=== PATIENT | female | born 1975 | race Caucasian/White ===

== ENCOUNTER 2016-06-08 17:24 | Emergency (ER) | payer BC ==
[~2016-06-08] VITALS: Ht 175.3 cm; Wt 134.4 kg
[~2016-06-08 17:24] MED LIST: ADVIN25/60 INH; ALBUAER19 INH; AZEL30SP NAE; CETI10TA10 PO; ESTR0.05 TOP; FLUT0.15 NAE; HYDR-5688 PO; MECL25TA2 PO; MONT1TAB3 PO; SALI0.6517 NAE
[2016-06-08 17:41] VITALS: TEMP 36.8; Ht 175.3 cm; Wt 134.4 kg
--- NOTE | 2016-06-08 18:09 | EMERGENCY ROOM VISIT NOTE ---
ED Visit Note First contact with patient: 17:44 CHIEF COMPLAINT: Head injury HISTORY OF PRESENT ILLNESS: This 41-year-old female patient presented to the emergency department accompanied by her after receiving a head injury approximately 3 hours ago. The patient reports that she was putting bottles of water in the refrigerator, when she stood up and hit her head off of a shelf. There was no loss of consciousness. There has been no vomiting. The patient complains of severe headache, nausea, dizziness and difficulty concentrating. The patient denies numbness, weakness, blurred vision or slurred speech. The headache has been constant and throbbing. The patient neck pain. The patient has taken no medications for the pain. The patient rates the pain as 6/10. The patient denies bowel or bladder dysfunction. The patient denies any other injuries. REVIEW OF SYSTEMS: A review of systems was performed with positives and pertinent negatives listed in the history of present illness. All other systems were reviewed and are negative. ALLERGIES: Oxycodone MEDICATIONS: See med list PMH: Asthma SOCIAL HISTORY: The patient lives locally with her family. PHYSICAL EXAM: Vital Signs: Reviewed Nurse's notes, vital signs stable. GENERAL : This is a 41-year-old female, in no acute distress, well-developed, well- nourished. NEURO: The patient is alert, oriented to person place and time, and coherent. Normal mini mental status exam. Negative Romberg and pronator drift. Cerebellar function intact. HEAD: Normocephalic. EYES: Pupils are equal round and reactive to light and accommodation. EOMs are full and optic discs and fundi are normal. There is no swelling or discoloration of the tissue surrounding the eyes. EARS: External auditory canals clear without blood. NOSE: Patent without tenderness. No septal hematoma. FACE: No facial bone tenderness. NECK: Supple. There is no cervical spine tenderness. The patient does not have tenderness with movement of the neck. ED COURSE: I examined the patient. Cabrera has symptoms consistent with a mild concussion. There were no concerning symptoms or physical exam findings to warrant a CT scan. I do not feel that CT is necessary at this time. I did discuss options of care with the patient including CT versus observation. The patient would prefer to be discharged home, but will return if she develops any new/concerning symptoms. Conservative care measures were discussed. She verbalized her understanding of my assessment and treatment plan. The patient was discharged home in good condition ambulatory. DIAGNOSIS: Head injury Problem List Medical Problems: (1) Asthma Status: Chronic (2) Hysterectomy Status: Resolved Current/Historical Medications Scheduled Cetirizine Hcl (Zyrtec), 10 MG PO QPM Estradiol (Vivelle-Dot), 1 PATCH TOP 2XWK Montelukast Sodium (Singulair), 10 MG PO QPM [Symbicort], 1 PUFF PO BID Scheduled PRN Ibuprofen (Advil), 400-600 MG PO Q6H PRN for Pain [Proair], 1 PUFF PO DAILY PRN for Shortness of Breath Allergies Coded Allergies: Oxycodone (Verified Adverse Reaction, Severe, VIOLENT VOMITING, 06/08/16) Vital Signs Date Time Temp Pulse Resp B/P Pulse Ox O2 Delivery O2 Flow Rate FiO2 06/08/16 18:24 82 15 160/97 99 06/08/16 17:41 36.8 88 18 164/101 97 Room Air Departure Information Impression Primary Impression: Closed head injury Dispostion Home / Self-Care Condition GOOD Referrals Erinn Aldana M.D. (MEDICAL) (PCP) Patient Instructions A Signature Page, ED Head Injury Closed, My [facility] Additional Instructions You have been treated in the Emergency Department for a Closed Head Injury. For pain control, you can use the following eadw-wxa-nuaphcy medicines (if >12 yo): - Regular strength (325mg/tab) Tylenol (acetaminophen) 2 tabs every 4-6 hours as needed. Do not exceed 12 tablets in a 24 hour period. Avoid taking more than 4 grams (4000 mg) of Tylenol per day. This includes any other sources of acetaminophen you may take on a regular basis. Avoid anti-inflammatories for the first 48 hours after a head injury. You should relax in a quiet, dark place for the rest of the day. Avoid any possible triggers including: cigarette smoke, caffeine, nicotine, chocolate, wine, beer, loud noises or music, or bright lights. You should schedule a follow-up appointment in 2-3 days with your Primary Care Provider if there are any persistent symptoms. Return to the Emergency Department if your current symptoms worsen despite treatment course outlined above, or if you develop any of the following symptoms : intractable pain despite aforementioned treatment course, visual disturbances , loss of vision, unilateral weakness or facial drooping, slurring of speech, loss of coordination, or loss of consciousness.
[2016-06-08] MEDS ORDERED: SYMBICORT PO (18:18)
[2016-06-08] MEDS ORDERED: IBUP-1050 PO (18:18)
[2016-06-08] MEDS ORDERED: PROAIR PO (18:18)
[2016-06-08 18:24] VITALS: BP 160/97; PULSE 82; O2SAT 99
== END 2016-06-08 18:25 | disposition home or self-care (01) ==
LOC: C.EDB 17:26 → C.EDD 18:25
DX: S09.90XA Unspecified injury of head, initial encounter (principal); W22.8XXA Striking against or struck by other objects, initial encounter; J45.909 Unspecified asthma, uncomplicated; Z90.710 Acquired absence of both cervix and uterus; Z88.5 Allergy status to narcotic agent

== ENCOUNTER → 2017-02-20 | Outpatient (CLI) | payer BC ==
[~2017-02-20] MED LIST changes: -ADVIN25/60 INH; -ALBUAER19 INH; -AZEL30SP NAE; -FLUT0.15 NAE; -HYDR-5688 PO; +IBUP-1050 PO; -MECL25TA2 PO; +PROAIR PO; -SALI0.6517 NAE; +SYMBICORT PO
--- NOTE | 2017-02-20 17:41 | DIAGNOSTIC IMAGING REPORT ---
LEFT LOWER EXT JOINT WITHOUT CLINICAL HISTORY: KNEE pain TECHNIQUE: Multiaxial MRI acquisition COMPARISON STUDY: None FINDINGS: Signal characteristics the osseous structures are unremarkable. Minimal subchondral edema inferior patellar articulating surface. Anterior and posterior cruciate ligaments are intact. Medial and lateral collateral ligaments are unremarkable. Moderate chondromalacia patella. Medial and lateral menisci are unremarkable in overall configuration and signal character. Medial and lateral collateral ligaments are unremarkable. IMPRESSION: 1. 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 2. Stable knee is otherwise negative. 3. Septated popliteal cyst posterior to the medial joint compartment measuring 4 x 2 cm. The above report was generated using voice recognition software. It may contain grammatical, syntax or spelling errors. Electronically signed by: Faizan Rea M.D. 02/20/2017 5:40 PM Dictated Date/Time: 02/20/2017 5:37 PM
== END | disposition home or self-care (01) ==
LOC: C.MRIBC 16:25
PROVIDERS: ATTEND Orthopaedic Surgery
DX: M22.42 Chondromalacia patellae, left knee (principal); M71.22 Synovial cyst of popliteal space [Baker], left knee

== ENCOUNTER 2017-03-27 19:18 | Emergency (ER) | payer BC, OTHER ==
[~2017-03-27] VITALS: Ht 175.3 cm; Wt 138.1 kg
[2017-03-27] MEDS ORDERED: LORAZEPAM 1 MG TAB SL STA (19:22)
[2017-03-27 19:31] VITALS: TEMP 36.7; Ht 175.3 cm; Wt 138.1 kg
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
[2017-03-27] MEDS ORDERED: MBC75 PO (20:03)
[2017-03-27] MEDS ORDERED: ALBU18002 INH (20:03)
[2017-03-27] MEDS ORDERED: SYMIN/8045 INH (20:03)
[2017-03-27] MEDS ORDERED: ATIVAN 1MG HOMEPACK PO ONE (20:15)
[2017-03-27 20:24] VITALS: BP 141/96; PULSE 92; O2SAT 99
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
== END 2017-03-27 20:25 | disposition home or self-care (01) ==
LOC: EDBD 19:18 → C.EDC 19:19
DX: S19.9XXA Unspecified injury of neck, initial encounter (principal); M54.2 Cervicalgia; V43.52XA Car driver injured in collision with other type car in traffic accident, initial encounter; Y92.410 Unspecified street and highway as the place of occurrence of the external cause

== ENCOUNTER 2017-03-29 16:44 | Emergency (ER) | payer BC, OTHER ==
[~2017-03-29] VITALS: Ht 175.3 cm; Wt 134.4 kg
[~2017-03-29 16:44] MED LIST changes: +ALBU18002 INH; -IBUP-1050 PO; +MBC75 PO; -PROAIR PO; -SYMBICORT PO; +SYMIN/8045 INH
[2017-03-29 16:59] VITALS: TEMP 36.9; Ht 175.3 cm; Wt 134.4 kg
[2017-03-29] MEDS ORDERED: LORAZEPAM 2 MG/ML 1 ML VIAL IV STA (17:29)
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
[2017-03-29 18:02] LABS: BASO % 0.2 %; BASO ABS # 0.03 K/uL (0-0.2); COMPLETE YES; EOS % 1.8 %; HEMATOCRIT 42.2 % (37-47); IG% 0.3 %; LYMPH % 22.7 %; LYMPH ABS # 3.35 K/uL (1.2-3.4); MEAN CELL VOLUME 78.4 fL (80-100); MEAN CORPUSCULAR HEMOGLOBIN 24.9 pg (25-34); MEAN CORPUSCULAR HGB CONC 31.8 g/dl (32-36); MEAN PLATELET VOLUME 9.8 fL (7.4-10.4); MONO % 6.2 %; NEUT % 68.8 %; PLATELET COUNT 384 K/uL (130-400); RED BLOOD COUNT 5.38 M/uL (4.2-5.4); WHITE BLOOD COUNT 14.78 K/uL (4.8-10.8)
[2017-03-29 18:21] LABS: PREG INTERNAL NEGATIVE QC NEG CLEAR BACKGROUND; PREG INTERNAL POSITIVE QC POS CONTROL LINE
[2017-03-29 18:22] LABS: BUN/CREATININE RATIO 12.3 (10-20); CALCIUM 8.8 mg/dl (8.5-10.1); CREATININE 0.56 mg/dl (0.60-1.20); POTASSIUM 3.5 mmol/L (3.5-5.1)
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
[2017-03-29] MEDS ORDERED: GADAVIST IV PRN (20:15)
[2017-03-29] MEDS ORDERED: METH4PAK PO (20:30)
[2017-03-29 21:00] VITALS: BP 133/79; PULSE 85; O2SAT 96
== END 2017-03-29 21:01 | disposition home or self-care (01) ==
LOC: C.EDB 16:46 → C.EDA 21:01
DX: M50.90 Cervical disc disorder, unspecified, unspecified cervical region (principal); R20.0 Anesthesia of skin; J45.909 Unspecified asthma, uncomplicated; Z80.9 Family history of malignant neoplasm, unspecified; Z83.79 Family history of other diseases of the digestive system; Z82.49 Family history of ischemic heart disease and other diseases of the circulatory system; Z79.899 Other long term (current) drug therapy

== ENCOUNTER 2017-07-25 12:01 | Observation (INO) | payer OTHER ==
[~2017-07-25] VITALS: Ht 175.3 cm; Wt 131.8 kg
[2017-07-25] MEDS ORDERED: KETOROLAC TROMETHAMINE 30 MG/ML VIAL IV STA (12:27)
[2017-07-25] MEDS ORDERED: ACETAMINOPHEN 500 MG TAB PO STA (12:27)
[2017-07-25] MEDS ORDERED: ONDANSETRON INJ 2 MG/ML 2 ML VIAL IV PRN ×2 (12:30→20:00)
[2017-07-25] MEDS ORDERED: SODIUM CHLORIDE 0.9% 1000ML 1,000 ML IV ONE ×4 (12:30→16:00)
--- NOTE | 2017-07-25 12:33 | EMERGENCY ROOM VISIT NOTE ---
History First contact with patient: 12:12 Chief Complaint: VOMITING Stated Complaint: LIGHTHEADED, NAUSEOUS, VOMITING, DIARRHEA Nursing Triage Summary: pt reports NVD since Sun. to PCP today sent in today for hydration pt reports feeling dizzy and lightheaded since sunday pt also reports body aches all over History of Present Illness The patient is a 42 year old female who presents to the Emergency Room with complaints of nausea, vomiting and diarrhea for the last 5 days. The patient also felt like she had a fever. She did not take her temperature at home. She has tried following a bland diet with minimal relief. She reports feeling lightheaded today at work. The patient was seen first at [facility], and sent here for further evaluation. She denies any abdominal pain. No cough. No sick contacts. Review of Systems 6 system review performed and negative unless otherwise noted Past Medical/Surgical History Medical Problems: (1) Asthma (2) Dizzy spells (3) Hysterectomy (4) Intractable nausea and vomiting (5) Lightheadedness Family History Diabetes mellitus FH: cancer Gallbladder disease Hypertension Seizures Social History Smoking Status: Never Smoker Alcohol Use: occasionally Drug Use: none Marital Status: Housing Status: lives with family Occupation Status: employed Current/Historical Medications Scheduled Budesonide/Formoterol Fumarate (Symbicort 80/4.5 Inhaler), 1 PUFF INH BID Cetirizine Hcl (Zyrtec), 10 MG PO QPM Estradiol (Vivelle-Dot), 1 PATCH TOP 2XWK Montelukast Sodium (Singulair), 10 MG PO QPM Scheduled PRN Albuterol Sulfate (Proair Respiclick), 1 PUFF INH DAILY PRN for Shortness of Breath Physical Exam Vital Signs Date Time Temp Pulse Resp B/P (MAP) Pulse Ox O2 Delivery O2 Flow Rate FiO2 07/25/17 18:25 77 20 136/83 98 07/25/17 16:30 83 18 117/65 Room Air 07/25/17 16:21 77 07/25/17 15:09 86 136/84 100 Room Air 90 149/100 90 156/99 07/25/17 13:36 78 18 139/99 99 Room Air 07/25/17 12:04 37.0 104 20 162/101 99 Room Air Physical Exam VITALS: Vitals are noted on the nurse's note and reviewed by myself. Vital signs stable. GENERAL: 42-year-old female, in no acute distress, nondiaphoretic, well- developed well-nourished. SKIN: The skin was without rashes, erythema, edema, or bruising. HEAD: Normocephalic atraumatic. MOUTH: Oral mucosa dry NECK: Supple without nuchal rigidity. No lymphadenopathy. Cervical spine is nontender. No JVD. HEART: Regular rate and rhythm without murmurs gallops or rubs. LUNGS: Clear to auscultation bilaterally without wheezes, rales or rhonchi. No accessory muscle use. ABDOMEN: Positive bowel sounds x 4.Soft, nontender, without organomegaly. No guarding or rebound tenderness. MUSCULOSKELETAL: No muscle atrophy, erythema, or edema noted. Strength 5/5 throughout. NEURO: Patient was alert and oriented to person place and time. Normal sensation to touch. No focal neurological deficits. Medical Decision & Procedures ER Provider Diagnostic Interpretation: CT head w/o contrast Impression: No acute intracranial abnormality. Electronically signed by: Gus Callahan M.D. 07/25/2017 5:44 PM Dictated Date/Time: 07/25/2017 5:41 PM abd/chest xray IMPRESSION: No evidence of bowel obstruction. No evidence of free air. Electronically signed by: Joaquim Prather M.D. 07/25/2017 1:33 PM Dictated Date/Time: 07/25/2017 1:32 PM The status of this report is Signed. Laboratory Results 07/25/17 12:30 Red Blood Count 5.48, Mean Corpuscular Volume 77.7, Mean Corpuscular Hemoglobin 25.0, Mean Corpuscular Hemoglobin Concent 32.2, Mean Platelet Volume 9.6, Neutrophils (%) (Auto) 71.3, Lymphocytes (%) (Auto) 21.4, Monocytes (%) (Auto) 5.7, Eosinophils (%) (Auto) 1.1, Basophils (%) (Auto) 0.2, Neutrophils # (Auto) 8.76, Lymphocytes # (Auto) 2.63, Monocytes # (Auto) 0.70, Eosinophils # (Auto) 0.13, Basophils # (Auto) 0.02 07/25/17 12:30 Test 07/25/17 12:30 07/25/17 13:52 White Blood Count 12.28 K/uL (4.8-10.8) Red Blood Count 5.48 M/uL (4.2-5.4) Hemoglobin 13.7 g/dL (12.0-16.0) Hematocrit 42.6 % (37-47) Mean Corpuscular Volume 77.7 fL (80-100) Mean Corpuscular Hemoglobin 25.0 pg (25-34) Mean Corpuscular Hemoglobin Concent 32.2 g/dl (32-36) Platelet Count 433 K/uL (130-400) Mean Platelet Volume 9.6 fL (7.4-10.4) Neutrophils (%) (Auto) 71.3 % Lymphocytes (%) (Auto) 21.4 % Monocytes (%) (Auto) 5.7 % Eosinophils (%) (Auto) 1.1 % Basophils (%) (Auto) 0.2 % Neutrophils # (Auto) 8.76 K/uL (1.4-6.5) Lymphocytes # (Auto) 2.63 K/uL (1.2-3.4) Monocytes # (Auto) 0.70 K/uL (0.11-0.59) Eosinophils # (Auto) 0.13 K/uL (0-0.5) Basophils # (Auto) 0.02 K/uL (0-0.2) RDW Standard Deviation 42.9 fL (36.4-46.3) RDW Coefficient of Variation 15.1 % (11.5-14.5) Immature Granulocyte % (Auto) 0.3 % Immature Granulocyte # (Auto) 0.04 K/uL (0.00-0.02) Anion Gap 6.0 mmol/L (3-11) Est Creatinine Clear Calc Drug Dose 154.8 ml/min Estimated GFR () 124.7 Estimated GFR (Non- 107.6 BUN/Creatinine Ratio 9.5 (10-20) Calcium Level 9.1 mg/dl (8.5-10.1) Magnesium Level 2.3 mg/dl (1.8-2.4) Total Bilirubin 0.5 mg/dl (0.2-1) Aspartate Amino Transf (AST/SGOT) 18 U/L (15-37) Alanine Aminotransferase (ALT/SGPT) 30 U/L (12-78) Alkaline Phosphatase 125 U/L (45-117) Total Protein 8.6 gm/dl (6.4-8.2) Albumin 3.7 gm/dl (3.4-5.0) Globulin 4.9 gm/dl (2.5-4.0) Albumin/Globulin Ratio 0.7 (0.9-2) Lyme Disease IgG Antibody POS (NEG) Urine Color YELLOW Urine Appearance CLEAR (CLEAR) Urine pH 7.5 (4.5-7.5) Urine Specific [place] 1.005 (1.000-1.030) Urine Protein NEG (NEG) Urine Glucose (UA) NEG (NEG) Urine Ketones TRACE (NEG) Urine Occult Blood NEG (NEG) Urine Nitrite NEG (NEG) Urine Bilirubin NEG (NEG) Urine Urobilinogen NEG (NEG) Urine Leukocyte Esterase SMALL (NEG) Urine WBC (Auto) 1-5 /hpf (0-5) Urine RBC (Auto) 0-4 /hpf (0-4) Urine Hyaline Casts (Auto) 1-5 /lpf (0-5) Urine Epithelial Cells (Auto) >30 /lpf (0-5) Urine Bacteria (Auto) NEG (NEG) Medications Administered Medications (Trade) Dose Ordered Sig/Gui Route Start Time Stop Time Status Last Admin Dose Admin Sodium Chloride 1,000 ml @ 999 mls/hr Q1H1M ONCE IV 07/25/17 12:30 07/25/17 16:11 DC 07/25/17 12:55 999 MLS/HR Sodium Chloride 1,000 ml @ 999 mls/hr Q1H1M ONCE IV 07/25/17 12:30 07/25/17 13:30 DC 07/25/17 12:55 999 MLS/HR Ondansetron HCl (Zofran Inj) 4 mg Q2H PRN IV 07/25/17 12:30 08/24/17 12:29 07/25/17 12:53 4 MG Ketorolac Tromethamine (Toradol Inj) 30 mg NOW STAT IV 07/25/17 12:27 07/25/17 12:30 DC 07/25/17 12:53 30 MG Acetaminophen (Tylenol Tab) 1,000 mg NOW STAT PO 07/25/17 12:27 07/25/17 12:30 DC 07/25/17 12:53 1,000 MG Promethazine HCl 12.5 mg/Sodium Chloride 50.5 ml @ 204 mls/hr NOW STAT IV 07/25/17 13:57 07/25/17 14:11 DC 07/25/17 14:07 204 MLS/HR Sodium Chloride 1,000 ml @ 999 mls/hr Q1H1M ONCE IV 07/25/17 15:30 07/25/17 16:30 DC 07/25/17 15:56 999 MLS/HR Meclizine HCl (Antivert Tab) 25 mg NOW STAT PO 07/25/17 16:41 07/25/17 16:42 DC 07/25/17 16:52 25 MG ECG Per My Interpretation Indication: weakness Rate (beats per minute): 78 Rhythm: normal sinus Findings: prolonged QT ED Course Patient was seen and examined Vital signs including blood pressure were reviewed medications list was verified with patient Labs were obtained, and a saline lock was established The patient was hydrated with 2 L of normal saline. She was medicated with Tylenol, Toradol and Zofran Upon reevaluation, the patient was still complaining of nausea and dizziness. She was given 1 dose of Phenergan. She was given an additional liter of normal saline. The imaging was reviewed. The patient was reassessed and still feeling lightheaded. She had difficulty ambulating to the bathroom. An EKG was performed and reviewed. She was given 1 dose of meclizine 25 mg by mouth. The case was discussed with supervising physician who is in agreement with my plan I discussed the case with case management. I subsequently discussed the case with the case here hospitalist group, who kindly agreed to evaluate the patient for further workup and treatment Medical Decision Differential diagnosis: Viral GI illness, bacterial GI illness, SBO, influenza, choledocholithiasis, pancreatitis, colitis This patient is a 42-year-old female that presents emergency department with ongoing nausea, vomiting and diarrhea. On exam, she was dehydrated. Her workup reveals mild leukocytosis. She was not able to have a bowel movement in the emergency department. X-rays of the abdomen do not show any signs of obstruction. The patient was vigorously hydrated in the emergency department. She was also given antinausea medication. Unfortunately, I could not get the patient symptomatically feeling better. Every time she got up to ambulate, she got very lightheaded. I also ordered an EKG. There are no signs of cardiac arrhythmia. A CT of the head was performed and negative. Do not feel comfortable sending this patient home as she is having significant difficulty with ambulation. I am concerned that she may fall. The case was discussed with [facility] prescription for kindly agreed to evaluate the patient for further workup and treatment This chart was completed in part utilizing [employer] Speech Voice Recognition software. Attempts were made to minimize the grammatical errors, random word insertions, pronoun errors and incomplete sentences. Any formal questions or concerns about the content, text or information contained within the body of this dictation should be directly addressed to the provider for clarification. Medication Reconcilliation Current Medication List: was personally reviewed by me Blood Pressure Screening Patient's blood pressure: Elevated blood pressure Blood pressure disposition: Did not require urgent referral Impression Primary Impression: Nausea, vomiting, and diarrhea Additional Impression: Lightheadedness Departure Information Referrals Erinn Aldana M.D. (MEDICAL) (PCP) Patient Instructions My [facility] Problem Qualifiers
[2017-07-25 12:45] LABS: BASO % 0.2 %; BASO ABS # 0.02 K/uL (0-0.2); EOS % 1.1 %; EOS ABS # 0.13 K/uL (0-0.5); HEMATOCRIT 42.6 % (37-47); HEMOGLOBIN 13.7 g/dL (12.0-16.0); IG# 0.04 K/uL (0.00-0.02); LYMPH % 21.4 %; LYMPH ABS # 2.63 K/uL (1.2-3.4); MEAN CELL VOLUME 77.7 fL (80-100); MEAN CORPUSCULAR HGB CONC 32.2 g/dl (32-36); MEAN PLATELET VOLUME 9.6 fL (7.4-10.4); MONO % 5.7 %; NEUT % 71.3 %; NEUT ABS # 8.76 K/uL (1.4-6.5); PLATELET COUNT 433 K/uL (130-400); RED CELL DISTRIBUTION WIDTH CV 15.1 % (11.5-14.5); RED CELL DISTRIBUTION WIDTH SD 42.9 fL (36.4-46.3); WHITE BLOOD COUNT 12.28 K/uL (4.8-10.8)
[2017-07-25 13:10] LABS: ALBUMIN 3.7 gm/dl (3.4-5.0); CALCIUM 9.1 mg/dl (8.5-10.1); CREATININE 0.7 mg/dl (0.60-1.20); POTASSIUM 3.2 mmol/L (3.5-5.1)
[2017-07-25 13:13] LABS: TOTAL PROTEIN 8.6 gm/dl (6.4-8.2)
--- NOTE | 2017-07-25 13:34 | DIAGNOSTIC IMAGING REPORT ---
ABDOMEN 2VIEW W/PA CHEST RTN CLINICAL HISTORY: Nausea, vomiting, diarrhea COMPARISON STUDY: No previous studies for comparison. FINDINGS: The erect chest reveals no evidence of free air. There is no evidence of focal pulmonary consolidation.] Erect and supine views of the abdomen reveal no abnormally dilated loops of large or small bowel. There are no transition zone to indicate bowel obstruction. There are surgical clips within the right upper quadrant consistent with a prior cholecystectomy. IMPRESSION: No evidence of bowel obstruction. No evidence of free air. Electronically signed by: Joaquim Prather M.D. 07/25/2017 1:33 PM Dictated Date/Time: 07/25/2017 1:32 PM
[2017-07-25] MEDS ORDERED: PROMETHAZINE HCL INJ 12.5 MG in SODIUM CHLORIDE 0.9% 50ML 50 ML IV STA (13:57)
[2017-07-25] MEDS ORDERED: MECLIZINE HCL 25 MG TAB PO STA (16:41)
--- NOTE | 2017-07-25 17:45 | DIAGNOSTIC IMAGING REPORT ---
HEAD CT NONCONTRAST CT DOSE: 537.48 mGy.cm HISTORY: lightheaded nauseated TECHNIQUE: Multiaxial CT images of the head were performed without the use of intravenous contrast. Automated exposure control was utilized for this study. A dose lowering technique was utilized adhering to the principles of ALARA. Comparison: Head CT 10/20/2012. Findings: The paranasal sinuses and mastoid air cells are clear. The calvarium and skull base are intact. The ventricles and sulci are within normal limits. There is no mass, hematoma, midline shift, or acute infarct. Impression: No acute intracranial abnormality. Electronically signed by: Gus Callahan M.D. 07/25/2017 5:44 PM Dictated Date/Time: 07/25/2017 5:41 PM
[2017-07-25] MEDS ORDERED: POLYETHYLENE (MIRALAX) 17 GM PACK PO PRN (20:00)
[2017-07-25] MEDS ORDERED: POTASSIUM CHLORIDE 10 MEQ TABCR PO STA (20:05)
[2017-07-25] MEDS ORDERED: CALCIUM CARBONATE 500 MG CHEWABLE PO PRN (20:15)
--- NOTE | 2017-07-25 20:27 | History and Physical ---
History & Physical Date & Time of Service: Jul 25, 2017 at 20:22 Chief Complaint: Lightheaded, Nauseous, Vomiting, Diarrhea Primary Care Physician: Erinn Aldana M.D. (MEDICAL) History of Present Illness Source: patient, family, clinic records Patient is a 42 yo female who presented to the ER today for complaints of worsening lightheadedness and dizziness that became worse today. She states she had some slight lightheadedness and dizziness on Sunday which were associated with fever, chills, myalgias, and nausea. She reports on Sunday the lightheadedness was gone and only had persistent flu like symptoms. On Sunday the patient reports having nausea, vomiting, and diarrhea, as well as abdominal pain which occurred prior to having a BM or after anytime the patient took in PO. She denies melena or hematochezia. She reports decreased PO intake due to N/ V/D. She reports that today her lightheadedness and dizziness recurred and were much more severe than last Sunday. She denies any sick contacts. She also reports feeling diaphoresis and palpitations which lasted a few minutes on Sunday and have not recurred. She also reports having severe leg cramps for the last 2 nights which she has not experienced before. Denies any URI symptoms. Denies any recent medication changes. Past Medical/Surgical History Medical Problems: (1) Asthma Status: Chronic (2) Hysterectomy Status: Resolved Family History Diabetes mellitus FH: cancer Gallbladder disease Hypertension Seizures Father: melanoma, [place], DM MGM and PGM: diabetes Social History Smoking Status: Never Smoker Smokeless Tobacco Use: No Alcohol Use: occasionally Drug Use: none Marital Status: Housing status: lives with family Occupational Status: employed Immunizations History of Influenza Vaccine: Unknown History of Tetanus Vaccine?: Unknown History of Pneumococcal: Unknown History of Hepatitis B Vaccine: Unknown Multi-Drug Resistant Organisms History of MDRO: No Allergies Coded Allergies: Oxycodone (Verified Adverse Reaction, Intermediate, VIOLENT VOMITING, 07/25) Home Medications Scheduled Budesonide/Formoterol Fumarate (Symbicort 80/4.5 Inhaler), 1 PUFF INH BID Cetirizine Hcl (Zyrtec), 10 MG PO QPM Estradiol (Vivelle-Dot), 1 PATCH TOP 2XWK Montelukast Sodium (Singulair), 10 MG PO QPM Scheduled PRN Albuterol Sulfate (Proair Respiclick), 1 PUFF INH DAILY PRN for Shortness of Breath Review of Systems Constitutional: + fever, + chills, + sweats Eyes: No eye pain, No redness, No diplopia ENT: No nasal symptoms, No sore throat, No trouble swallowing Respiratory: No cough, No wheezing, No shortness of breath Cardiovascular: + palpitations, No chest pain, No edema Abdomen: + pain, + nausea, + vomiting, + diarrhea, No GI bleeding Musculoskeletal: + muscle pain Genitourinary - Female: No dysuria, No urinary frequency, No urinary urgency Neurologic: No memory loss, No weakness, No numbness/tingling, No vertigo Psychiatric: No depression symptoms, No anxiety, No substance abuse Endocrine: No fatigue, No excessive thirst, No excessive urination Hematologic / Lymphatic: No abnormal bleeding/bruising, No night sweats Integumentary: No rash, No itch, No new/changing skin lesions Physical Exam Vital Signs Date Time Temp Pulse Resp B/P (MAP) Pulse Ox O2 Delivery O2 Flow Rate FiO2 07/25/17 18:25 77 20 136/83 98 07/25/17 16:30 83 18 117/65 Room Air 07/25/17 16:21 77 07/25/17 15:09 86 136/84 100 Room Air 90 149/100 90 156/99 07/25/17 13:36 78 18 139/99 99 Room Air 07/25/17 12:04 37.0 104 20 162/101 99 Room Air General Appearance: WD/WN, no apparent distress Head: normocephalic, atraumatic Eyes: normal inspection, PERRL, EOMI, sclerae normal (conjunctivae clear) ENT: hearing grossly normal Neck: supple, no JVD, no carotid bruits, trachea midline Respiratory/Chest: chest non-tender, lungs clear, normal breath sounds, no respiratory distress, no accessory muscle use Cardiovascular: regular rate, rhythm, no edema, no gallop, no JVD, no murmur Abdomen/GI: normal bowel sounds, non tender, soft, no organomegaly Back: no CVA tenderness Extremities/Musculoskelatal: normal inspection, no calf tenderness, no pedal edema Neurologic/Psych: no motor/sensory deficits, alert, normal mood/affect, oriented x 3 Skin: normal color, warm/dry, no rash Diagnostics Laboratory Results Results Past 24 Hours Test 07/25/17 12:30 07/25/17 13:52 Range/Units White Blood Count 12.28 4.8-10.8 K/uL Red Blood Count 5.48 4.2-5.4 M/uL Hemoglobin 13.7 12.0-16.0 g/dL Hematocrit 42.6 37-47 % Mean Corpuscular Volume 77.7 80-100 fL Mean Corpuscular Hemoglobin 25.0 25-34 pg Mean Corpuscular Hemoglobin Concent 32.2 32-36 g/dl Platelet Count 433 130-400 K/uL Mean Platelet Volume 9.6 7.4-10.4 fL Neutrophils (%) (Auto) 71.3 % Lymphocytes (%) (Auto) 21.4 % Monocytes (%) (Auto) 5.7 % Eosinophils (%) (Auto) 1.1 % Basophils (%) (Auto) 0.2 % Neutrophils # (Auto) 8.76 1.4-6.5 K/uL Lymphocytes # (Auto) 2.63 1.2-3.4 K/uL Monocytes # (Auto) 0.70 0.11-0.59 K/uL Eosinophils # (Auto) 0.13 0-0.5 K/uL Basophils # (Auto) 0.02 0-0.2 K/uL RDW Standard Deviation 42.9 36.4-46.3 fL RDW Coefficient of Variation 15.1 11.5-14.5 % Immature Granulocyte % (Auto) 0.3 % Immature Granulocyte # (Auto) 0.04 0.00-0.02 K/uL Sodium Level 138 136-145 mmol/L Potassium Level 3.2 3.5-5.1 mmol/L Chloride Level 103 98-107 mmol/L Carbon Dioxide Level 29 21-32 mmol/L Anion Gap 6.0 3-11 mmol/L Blood Urea Nitrogen 7 7-18 mg/dl Creatinine 0.70 0.60-1.20 mg/dl Est Creatinine Clear Calc Drug Dose 154.8 ml/min Estimated GFR () 124.7 Estimated GFR (Non- 107.6 BUN/Creatinine Ratio 9.5 10-20 Random Glucose 95 70-99 mg/dl Calcium Level 9.1 8.5-10.1 mg/dl Magnesium Level 2.3 1.8-2.4 mg/dl Total Bilirubin 0.5 0.2-1 mg/dl Aspartate Amino Transf (AST/SGOT) 18 15-37 U/L Alanine Aminotransferase (ALT/SGPT) 30 12-78 U/L Alkaline Phosphatase 125 45-117 U/L Total Protein 8.6 6.4-8.2 gm/dl Albumin 3.7 3.4-5.0 gm/dl Globulin 4.9 2.5-4.0 gm/dl Albumin/Globulin Ratio 0.7 0.9-2 Lyme Disease IgG Antibody POS NEG Lyme Disease IgM Antibody NEG NEG Urine Color YELLOW Urine Appearance CLEAR CLEAR Urine pH 7.5 4.5-7.5 Urine Specific [place] 1.005 1.000-1.030 Urine Protein NEG NEG Urine Glucose (UA) NEG NEG Urine Ketones TRACE NEG Urine Occult Blood NEG NEG Urine Nitrite NEG NEG Urine Bilirubin NEG NEG Urine Urobilinogen NEG NEG Urine Leukocyte Esterase SMALL NEG Urine WBC (Auto) 1-5 0-5 /hpf Urine RBC (Auto) 0-4 0-4 /hpf Urine Hyaline Casts (Auto) 1-5 0-5 /lpf Urine Epithelial Cells (Auto) >30 0-5 /lpf Urine Bacteria (Auto) NEG NEG Impression Assessment and Plan LIGHTHEADEDNESS/DIZZINESS/PALPITATIONS: -will admit to obs in tele to evaluate for any arrhythmias -orthostatics daily; first set was negative -check serial CM -TTE and carotid dopplers ordered -Lyme IgG positive, awaiting confirmatory, patient denies any known rashes or tick bites but recalls her dog having tick bites -hydrate with IV fluids overnight -not likely flu given GI symptoms -CT head negative POSSIBLE LYME: not acute -awaiting confirmatory (if >5 bands positive) -start on doxycycline, switch to PO once able to tolerate PO NAUSEA/VOMITING/DIARRHEA: -x ray negative for ileus or obstruction -most likely viral however if symptoms persist would consider further imaging -check stool culture and c diff ASTHMA: -stable, not in exacerbation -continue home meds and inhalers DM TYPE II: as per outpatient records -patient is not on any meds, presumably diet controlled -will order HbA1c update Level of Care Telemetry Resuscitation Status FULL RESUSCITATION VTE Prophylaxis VTE Risk Assessment Done? Y/N: Yes Risk Level: Moderate Given or contraindicated: Enoxaparin (Lovenox)SQ
--- NOTE | 2017-07-25 21:20 | DIAGNOSTIC IMAGING REPORT ---
BILATERAL CAROTID DOPPLER STUDY HISTORY: lightheadedness/dizziness COMPARISON: None. TECHNIQUE: Real-time, grayscale, and color Doppler sonography of the carotid arteries was performed. Imaging reviewed in the transverse and longitudinal planes. All measurements were calculated based on NASCET criteria. FINDINGS: Antegrade flow is seen in the bilateral vertebral arteries. The brachial pressures were not obtained. The peak systolic velocity within the right ICA is 116 cm/s. The right systolic ratio is 1.2. The peak systolic velocity within the left ICA is 85 cm/s. The left systolic ratio is 1.0. IMPRESSION: No hemodynamically significant stenosis seen within the carotid arteries. Electronically signed by: Gus Callahan M.D. 07/25/2017 9:19 PM Dictated Date/Time: 07/25/2017 9:18 PM
[2017-07-25] MEDS ORDERED: IV FLUIDS COMPLETED PRN (21:30)
[2017-07-25] MEDS ORDERED: MECLIZINE HCL 25 MG TAB PO PRN (22:00)
[2017-07-25] MEDS ORDERED: ALBUTEROL HFA 8 GM INHALER INH PRN (22:00)
[2017-07-25] MEDS ORDERED: POTASSIUM CHLORIDE 10 MEQ TABCR ONE (22:08)
[2017-07-25 22:42] VITALS: BP 126/82; PULSE 81; TEMP 37; O2SAT 97; Ht 175.3 cm; Wt 131.8 kg
[2017-07-25] MEDS ORDERED: SODIUM CHLORIDE 0.9% 1000ML 1,000 ML IV SCH (23:00)
[2017-07-25] MEDS: DOXYCYCLINE IV 100 MG in DEXTROSE 5% 100ML 100 ML IV SCH (23:14)
[2017-07-25] MEDS: ACETAMINOPHEN 325 MG TAB PO PRN (23:24)
[2017-07-26] MEDS ORDERED: ZOLPIDEM TARTRATE 5 MG TAB PO PRN (00:45)
[2017-07-26 08:01] LABS: HEMATOCRIT 40.5 % (37-47); HEMOGLOBIN 12.6 g/dL (12.0-16.0); MEAN CELL VOLUME 79.3 fL (80-100); MEAN CORPUSCULAR HEMOGLOBIN 24.7 pg (25-34); MEAN CORPUSCULAR HGB CONC 31.1 g/dl (32-36); MEAN PLATELET VOLUME 9.7 fL (7.4-10.4); PLATELET COUNT 381 K/uL (130-400); RED CELL DISTRIBUTION WIDTH CV 15.3 % (11.5-14.5); RED CELL DISTRIBUTION WIDTH SD 44.4 fL (36.4-46.3)
[2017-07-26 08:02] VITALS: BP 125/85; PULSE 83; TEMP 36.6; O2SAT 98
[2017-07-26 08:16] LABS: HEMOGLOBIN A1C 6.4 % (4.5-5.6)
--- NOTE | 2017-07-26 08:21 | ECHOCARDIOGRAM REPORT ---
*NOTICE TO RECEIVING LIBERTARIAN AGENCY This information is strictly Confidential and protected under [place] law. [place] law prohibits you from making any further disclosure of this information unless further disclosure is expressly permitted by the written consent of the person to whom it pertains or is authorized by law. A general authorization for the release of medical or other information is not sufficient for this purpose. Hospital accepts no responsibility if the information is made available to any other person, INCLUDING THE PATIENT. Interpretation Summary * Name: KRYSTAL MOTA Study Date: 07/26/2017 06:42 AM BP: 126/82 mmHg * Patient Location: [facility]\S\N288\S\1 HR: 81 * : 1975 (M/d/yyyy) Gender: Female Height: 69 in * Age: 42 yrs Ethnicity: CA Weight: 292 lb * Ordering Physician: Padmini Prince * Referring Physician: Self, Referred * Performed By: Juan A Appiah RCS * * Reason For Study: Palpitations * BSA: 2.4 m2 * -- Conclusions -- * Normal LV chamber size and wall thickness. * Normal LV systolic function, EF 60-65%. * No segmental left ventricular wall motion abnormalities are noted. * Grade II diastolic dysfunction. * No significant valvular pathology. * Mild left atrial enlargement. Procedure Details * A complete two-dimensional transthoracic echocardiogram was performed (2D, M-mode, Doppler and color flow Doppler). Left Ventricle * The left ventricle is normal in size. * There is normal left ventricular wall thickness. * Left ventricular systolic function is normal. * No segmental left ventricular wall motion abnormalities are noted. * Ejection Fraction = 60-65%. * The left ventricular wall motion is normal. Right Ventricle * The right ventricular cavity size is normal (basal dimension <4.2 cm in right ventricular apical 4-chamber view). * The right ventricular systolic function is normal as assessed by tricuspid annular plane systolic excursion (TAPSE) (normal >1.5 cm). Atria * The left atrium is mildly dilated. * Right atrial size is normal. * No ASD detected; PFO is not assessed. Mitral Valve * The mitral valve is normal in structure and function. Tricuspid Valve * The tricuspid valve is normal in structure and function. Aortic Valve * The aortic valve is normal in structure and function. Pulmonic Valve * The pulmonary valve is not well seen, but the Doppler examination is normal without significant regurgitation or stenosis. Great Vessels * The aortic root and proximal ascending aorta are normal sized. Pericardium/Pleural * Trace anterior pericardial effusion. Left Ventricular Diastolic Function * Diastolic dysfunction, Grade II (pseudonormalization pattern). MMode 2D Measurements and Calculations IVSd 1.0 cm IVSs 1.3 cm LVIDd 5.7 cm LVIDs 3.4 cm LVPWd 1.0 cm LVPWs 1.5 cm IVS/LVPW 0.96 FS 41.2 % EDV(Teich) 161.9 ml ESV(Teich) 46.3 ml EF(Teich) 71.4 % EDV(cubed) 188.0 ml ESV(cubed) 38.2 ml EF(cubed) 79.7 % % IVS thick 26.0 % % LVPW thick 39.9 % LV mass(C)d 237.2 grams LV mass(C)dI 97.8 grams/m\S\2 LV mass(C)s 158.4 grams LV mass(C)sI 65.3 grams/m\S\2 SV(Teich) 115.6 ml SI(Teich) 47.6 ml/m\S\2 SV(cubed) 149.8 ml SI(cubed) 61.8 ml/m\S\2 Ao root diam 3.1 cm Ao root area 7.8 cm\S\2 ACS 1.7 cm LA dimension 4.8 cm asc Aorta Diam 2.8 cm LA/Ao 1.5 EDV(MOD-sp4) 109.0 ml ESV(MOD-sp4) 41.0 ml EF(MOD-sp4) 62.4 % EDV(MOD-sp2) 64.0 ml ESV(MOD-sp2) 25.0 ml EF(MOD-sp2) 60.9 % SV(MOD-sp4) 68.0 ml SI(MOD-sp4) 28.0 ml/m\S\2 SV(MOD-sp2) 39.0 ml SI(MOD-sp2) 16.1 ml/m\S\2 Doppler Measurements and Calculations MV E max tj 102.7 cm/sec MV A max tj 75.5 cm/sec MV E/A 1.4 MV P1/2t max tj 104.1 cm/sec MV P1/2t 74.4 msec MVA(P1/2t) 3.0 cm\S\2 MV dec slope 409.8 cm/sec\S\2 MV dec time 0.24 sec Ao V2 max 129.4 cm/sec Ao max PG 6.7 mmHg Ao max PG (full) -0.49 mmHg LV V1 max PG 7.2 mmHg LV V1 max 134.1 cm/sec PA V2 max 144.2 cm/sec PA max PG 8.3 mmHg
[2017-07-26 08:22] LABS: CALCIUM 8.4 mg/dl (8.5-10.1); CREATININE 0.6 mg/dl (0.60-1.20); POTASSIUM 3.5 mmol/L (3.5-5.1)
[2017-07-26] MEDS: BUDESONIDE/FORMOTEROL FUMARATE 80/4.5 60 PUFFS/INHALER INH SCH ×2 (08:43→21:01)
[2017-07-26] MEDS: PANTOprazole SOD 40 MG TAB PO SCH (08:43)
[2017-07-26] MEDS: DOXYCYCLINE IV 100 MG in DEXTROSE 5% 100ML 100 ML IV SCH ×2 (08:43→21:11)
[2017-07-26] MEDS: ENOXAPARIN 40 MG/0.4 ML SYR SC SCH (08:44)
[2017-07-26] MEDS: ASPIRIN 81 MG ECTAB PO SCH (08:44)
[2017-07-26 11:26] VITALS: BP 135/89; PULSE 83; TEMP 36.6; O2SAT 97
[2017-07-26 14:57] VITALS: BP 143/87; PULSE 87; TEMP 36.5; O2SAT 98
--- NOTE | 2017-07-26 16:08 | Progress Note ---
Internal Med Progress Note Date of Service: Jul 26, 2017. Provider Documentation: SUBJECTIVE: The patient was seen and examined A little bit better since admission Complains of dizziness and headache OBJECTIVE: Vital Signs-as noted below Exam: General-No distress at rest Eyes-normal ENT-normal Neck-supple Lungs-clear to ausucltate bilaterally Heart-Regular,no murmur appreciated Abdomen-Benign,no masses,bowel sound present Extremities-No edema Neuro-AAOx3 Lab data as noted below. ASSESSMENT & PLAN: LIGHTHEADEDNESS/DIZZINESS/PALPITATIONS: -No arrhythmia on Tele -Orthostatics daily; first set was negative -TTE::Normal LV chamber size and wall thickness. * Normal LV systolic function, EF 60-65%. * No segmental left ventricular wall motion abnormalities are noted. * Grade II diastolic dysfunction. * No significant valvular pathology. * Mild left atrial enlargement. Carotid Doppler ::No hemodynamically significant stenosis seen within the carotid arteries. -Lyme IgG positive, awaiting confirmatory, patient denies any known rashes or tick bites but recalls her dog having tick bites -Hydrate with IV fluids overnight -Likely Viral Gastroenteritis -CT head negative -Increase ambulation -Likely home tomorrow POSSIBLE LYME: not acute -awaiting confirmatory (if >5 bands positive) -start on doxycycline, switch to PO once able to tolerate PO NAUSEA/VOMITING/DIARRHEA: -x ray negative for ileus or obstruction -most likely viral however if symptoms persist would consider further imaging -check stool culture and c diff-pending ASTHMA: -stable, not in exacerbation -continue home meds and inhalers DM TYPE II: as per outpatient records -patient is not on any meds, presumably diet controlled -will order HbA1c update DVT PROPHYLAXIS Lovenox DISPOSITION Likely home tomorrow Vital Signs: Date Time Temp Pulse Resp B/P (MAP) Pulse Ox O2 Delivery O2 Flow Rate FiO2 07/26/17 14:57 36.5 87 18 143/87 (105) 98 Room Air 07/26/17 12:00 Room Air 07/26/17 11:26 36.6 83 18 135/89 (104) 97 Room Air 07/26/17 08:02 36.6 83 16 125/85 (98) 98 Room Air 07/26/17 08:00 Room Air 07/26/17 04:00 Room Air 07/26/17 00:00 Room Air 07/25/17 22:42 37.0 81 18 126/82 97 Room Air 07/25/17 22:20 80 20 138/96 98 07/25/17 21:30 78 20 118/76 98 Room Air 07/25/17 18:25 77 20 136/83 98 07/25/17 16:30 83 18 117/65 Room Air 07/25/17 16:21 77 Lab Results: Results Past 24 Hours Test 07/26/17 01:22 07/26/17 07:47 07/26/17 13:44 Range/Units Troponin I < 0.015 < 0.015 < 0.015 0-0.045 ng/ml White Blood Count 8.50 4.8-10.8 K/uL Red Blood Count 5.11 4.2-5.4 M/uL Hemoglobin 12.6 12.0-16.0 g/dL Hematocrit 40.5 37-47 % Mean Corpuscular Volume 79.3 80-100 fL Mean Corpuscular Hemoglobin 24.7 25-34 pg Mean Corpuscular Hemoglobin Concent 31.1 32-36 g/dl RDW Standard Deviation 44.4 36.4-46.3 fL RDW Coefficient of Variation 15.3 11.5-14.5 % Platelet Count 381 130-400 K/uL Mean Platelet Volume 9.7 7.4-10.4 fL Sodium Level 141 136-145 mmol/L Potassium Level 3.5 3.5-5.1 mmol/L Chloride Level 110 98-107 mmol/L Carbon Dioxide Level 27 21-32 mmol/L Anion Gap 5.0 3-11 mmol/L Blood Urea Nitrogen 4 7-18 mg/dl Creatinine 0.60 0.60-1.20 mg/dl Est Creatinine Clear Calc Drug Dose 181.5 ml/min Estimated GFR () 131.2 Estimated GFR (Non- 113.2 BUN/Creatinine Ratio 7.1 10-20 Random Glucose 101 70-99 mg/dl Estimated Average Glucose 137 mg/dl Hemoglobin A1c 6.4 4.5-5.6 % Calcium Level 8.4 8.5-10.1 mg/dl Magnesium Level 2.1 1.8-2.4 mg/dl Triglycerides Level 125 0-150 mg/dl Cholesterol Level 160 0-200 mg/dl HDL Cholesterol 30 mg/dl LDL Cholesterol, Calculated 105 mg/dl VLDL Cholesterol, Calculated 25 mg/dl Cholesterol/HDL Ratio 5.3
[2017-07-26 20:00] VITALS: O2SAT 98
[2017-07-26] MEDS: MONTELUKAST SOD 10 MG TAB PO SCH (21:01)
[2017-07-26] MEDS: CETIRIZINE HCL 10 MG TAB PO SCH (21:01)
[2017-07-26 21:04] VITALS: BP 120/86; PULSE 71; TEMP 36.8; O2SAT 96
[2017-07-26] MEDS: ACETAMINOPHEN 325 MG TAB PO PRN (21:12)
[2017-07-26] MEDS ORDERED: KETOROLAC TROMETHAMINE 30 MG/ML VIAL IV STA (22:54)
[2017-07-27] VITALS (10 sets, daily range): BP systolic 118–154; BP diastolic 78–92; PULSE 65–97; TEMP 36.3–36.9; O2SAT 92–98
[2017-07-27 07:10] LABS: HEMATOCRIT 39.7 % (37-47); HEMOGLOBIN 12.5 g/dL (12.0-16.0); MEAN CELL VOLUME 79.4 fL (80-100); MEAN CORPUSCULAR HGB CONC 31.5 g/dl (32-36); PLATELET COUNT 382 K/uL (130-400); RED CELL DISTRIBUTION WIDTH CV 15.2 % (11.5-14.5); RED CELL DISTRIBUTION WIDTH SD 44.4 fL (36.4-46.3); WHITE BLOOD COUNT 10.65 K/uL (4.8-10.8)
[2017-07-27 07:41] LABS: CALCIUM 8.7 mg/dl (8.5-10.1); CREATININE 0.61 mg/dl (0.60-1.20); POTASSIUM 3.2 mmol/L (3.5-5.1)
[2017-07-27 07:42] LABS: PHOSPHORUS 3.4 mg/dl (2.5-4.9)
[2017-07-27] MEDS: BUDESONIDE/FORMOTEROL FUMARATE 80/4.5 60 PUFFS/INHALER INH SCH ×2 (09:00→21:00)
[2017-07-27] MEDS: ASPIRIN 81 MG ECTAB PO SCH (09:00)
[2017-07-27] MEDS: PANTOprazole SOD 40 MG TAB PO SCH (09:00)
[2017-07-27] MEDS: ENOXAPARIN 40 MG/0.4 ML SYR SC SCH (09:00)
[2017-07-27] MEDS: DOXYCYCLINE IV 100 MG in DEXTROSE 5% 100ML 100 ML IV SCH ×2 (09:00→21:00)
[2017-07-27] MEDS ORDERED: POTASSIUM CHLORIDE 10 MEQ TABCR PO STA (10:31)
--- NOTE | 2017-07-27 17:11 | Progress Note ---
Internal Med Progress Note Date of Service: Jul 27, 2017. Provider Documentation: SUBJECTIVE: The patient was seen and examined A little bit better since admission Complains of dizziness and headache Continues to have dizziness and mild headache Nech movement causes more dizziness OBJECTIVE: Vital Signs-as noted below Exam: General-No distress at rest Eyes-normal ENT-normal Neck-supple Lungs-clear to ausucltate bilaterally Heart-Regular,no murmur appreciated Abdomen-Benign,no masses,bowel sound present Extremities-No edema Neuro-AAOx3 Rapid neck movement cause dizziness Lab data as noted below. ASSESSMENT & PLAN: LIGHTHEADEDNESS/DIZZINESS/PALPITATIONS: -No arrhythmia on Tele -Orthostatics daily; first set was negative -TTE::Normal LV chamber size and wall thickness. * Normal LV systolic function, EF 60-65%. * No segmental left ventricular wall motion abnormalities are noted. * Grade II diastolic dysfunction. * No significant valvular pathology. * Mild left atrial enlargement. Carotid Doppler ::No hemodynamically significant stenosis seen within the carotid arteries. -Lyme IgG positive, awaiting confirmatory, patient denies any known rashes or tick bites but recalls her dog having tick bites -Hydrate with IV fluids overnight -Likely Viral Gastroenteritis -CT head negative -Increase ambulation -Likely home tomorrow Continued Dizziness May have Labyrinthine disease Sushila maneuver Likely discharge tomorrow POSSIBLE LYME: not acute -awaiting confirmatory (if >5 bands positive) -start on doxycycline, switch to PO once able to tolerate PO NAUSEA/VOMITING/DIARRHEA: -x ray negative for ileus or obstruction -most likely viral however if symptoms persist would consider further imaging -check stool culture and c diff-pending Nausea improved ASTHMA: -stable, not in exacerbation -continue home meds and inhalers DM TYPE II: as per outpatient records -patient is not on any meds, presumably diet controlled -will order HbA1c update DVT PROPHYLAXIS Lovenox DISPOSITION Likely home tomorrow Vital Signs: Date Time Temp Pulse Resp B/P (MAP) Pulse Ox O2 Delivery O2 Flow Rate FiO2 07/27/17 15:15 36.8 88 18 125/79 (94) 92 07/27/17 12:00 Room Air 07/27/17 11:22 36.7 84 18 126/85 (99) 97 07/27/17 08:00 96 Room Air 07/27/17 07:29 36.9 65 20 118/78 (91) 96 07/27/17 04:46 36.3 67 18 123/79 (94) 98 Room Air 07/27/17 04:00 Room Air 07/27/17 00:00 Room Air 07/27/17 00:00 36.5 65 16 126/83 (97) 97 Room Air 07/26/17 21:04 36.8 71 18 120/86 (97) 96 Room Air 07/26/17 20:00 98 Room Air Lab Results: Results Past 24 Hours Test 07/27/17 06:47 Range/Units White Blood Count 10.65 4.8-10.8 K/uL Red Blood Count 5.00 4.2-5.4 M/uL Hemoglobin 12.5 12.0-16.0 g/dL Hematocrit 39.7 37-47 % Mean Corpuscular Volume 79.4 80-100 fL Mean Corpuscular Hemoglobin 25.0 25-34 pg Mean Corpuscular Hemoglobin Concent 31.5 32-36 g/dl RDW Standard Deviation 44.4 36.4-46.3 fL RDW Coefficient of Variation 15.2 11.5-14.5 % Platelet Count 382 130-400 K/uL Mean Platelet Volume 10.0 7.4-10.4 fL Sodium Level 139 136-145 mmol/L Potassium Level 3.2 3.5-5.1 mmol/L Chloride Level 106 98-107 mmol/L Carbon Dioxide Level 25 21-32 mmol/L Anion Gap 8.0 3-11 mmol/L Blood Urea Nitrogen 9 7-18 mg/dl Creatinine 0.61 0.60-1.20 mg/dl Est Creatinine Clear Calc Drug Dose 176.5 ml/min Estimated GFR () 130.5 Estimated GFR (Non- 112.6 BUN/Creatinine Ratio 14.5 10-20 Random Glucose 115 70-99 mg/dl Calcium Level 8.7 8.5-10.1 mg/dl Phosphorus Level 3.4 2.5-4.9 mg/dl Magnesium Level 2.2 1.8-2.4 mg/dl
[2017-07-27] MEDS ORDERED: KETOROLAC TROMETHAMINE 30 MG/ML VIAL IV PRN (17:30)
[2017-07-27] MEDS: MONTELUKAST SOD 10 MG TAB PO SCH (21:00)
[2017-07-27] MEDS: CETIRIZINE HCL 10 MG TAB PO SCH (21:01)
[2017-07-28 04:13] VITALS: BP 129/77; PULSE 77; TEMP 36.3; O2SAT 96
[2017-07-28 07:21] VITALS: BP 121/83; PULSE 78; TEMP 36.7; O2SAT 96
[2017-07-28 07:30] VITALS: O2SAT 96
[2017-07-28 07:55] LABS: CALCIUM 8.6 mg/dl (8.5-10.1); CREATININE 0.68 mg/dl (0.60-1.20); POTASSIUM 3.5 mmol/L (3.5-5.1)
[2017-07-28] MEDS: BUDESONIDE/FORMOTEROL FUMARATE 80/4.5 60 PUFFS/INHALER INH SCH (08:10)
[2017-07-28] MEDS: ASPIRIN 81 MG ECTAB PO SCH (08:10)
[2017-07-28] MEDS: PANTOprazole SOD 40 MG TAB PO SCH (08:10)
[2017-07-28] MEDS: ENOXAPARIN 40 MG/0.4 ML SYR SC SCH (08:12)
[2017-07-28] MEDS ORDERED: POTASSIUM CHLORIDE 10 MEQ TABCR PO ONE (08:30)
[2017-07-28] MEDS: DOXYCYCLINE IV 100 MG in DEXTROSE 5% 100ML 100 ML IV SCH (08:49)
[2017-07-28 11:14] VITALS: BP 148/91; PULSE 98; TEMP 36.6; O2SAT 99
--- NOTE | 2017-07-28 12:43 | Progress Note ---
Internal Med Progress Note Date of Service: Jul 28, 2017. Provider Documentation: SUBJECTIVE: The patient was seen and examined A little bit better since admission Complains of dizziness and headache Continues to have dizziness and mild headache Neck movement causes more dizziness Minimal to no dizziness Sushila maneuver is helping OBJECTIVE: Vital Signs-as noted below Exam: General-No distress at rest Eyes-normal ENT-normal Neck-supple Lungs-clear to ausucltate bilaterally Heart-Regular,no murmur appreciated Abdomen-Benign,no masses,bowel sound present Extremities-No edema Neuro-AAOx3 Rapid neck movement cause dizziness Lab data as noted below. ASSESSMENT & PLAN: LIGHTHEADEDNESS/DIZZINESS/PALPITATIONS:-Resolved -No arrhythmia on Tele -Orthostatics daily; first set was negative -TTE::Normal LV chamber size and wall thickness. * Normal LV systolic function, EF 60-65%. * No segmental left ventricular wall motion abnormalities are noted. * Grade II diastolic dysfunction. * No significant valvular pathology. * Mild left atrial enlargement. Carotid Doppler ::No hemodynamically significant stenosis seen within the carotid arteries. -Lyme IgG positive, awaiting confirmatory, patient denies any known rashes or tick bites but recalls her dog having tick bites -Hydrate with IV fluids overnight -Likely Viral Gastroenteritis -CT head negative -Increase ambulation -No more symptoms reported -discharge home today Continued Dizziness May have Labyrinthine disease Sushila maneuver -helped the symptoms Likely discharge tomorrow POSSIBLE LYME: Ruled Out -awaiting confirmatory (if >5 bands positive) -start on doxycycline, switch to PO once able to tolerate PO -Confirmatory test -negative NAUSEA/VOMITING/DIARRHEA: -x ray negative for ileus or obstruction -most likely viral however if symptoms persist would consider further imaging -check stool culture and c diff-pending Nausea improved ASTHMA: -stable, not in exacerbation -continue home meds and inhalers DM TYPE II: as per outpatient records -patient is not on any meds, presumably diet controlled -will order HbA1c update DVT PROPHYLAXIS Lovenox DISPOSITION discharge home today Vital Signs: Date Time Temp Pulse Resp B/P (MAP) Pulse Ox O2 Delivery O2 Flow Rate FiO2 07/28/17 11:14 36.6 98 18 148/91 (110) 99 Room Air 07/28/17 11:05 36.7 78 18 96 Room Air 07/28/17 07:30 96 Room Air 07/28/17 07:21 36.7 78 18 121/83 (96) 96 Room Air 07/28/17 04:13 36.3 77 18 129/77 (94) 96 Room Air 07/28/17 04:00 Room Air 07/28/17 00:00 Room Air 07/27/17 23:20 36.5 79 16 136/88 (104) 97 Room Air 07/27/17 20:00 92 Room Air 07/27/17 19:26 36.7 88 16 135/87 (103) 96 Room Air 89 141/92 (108) 97 154/92 (112) 07/27/17 16:00 92 Room Air 07/27/17 15:15 36.8 88 18 125/79 (94) 92 Lab Results: Results Past 24 Hours Test 07/28/17 07:13 Range/Units Sodium Level 138 136-145 mmol/L Potassium Level 3.5 3.5-5.1 mmol/L Chloride Level 105 98-107 mmol/L Carbon Dioxide Level 28 21-32 mmol/L Anion Gap 5.0 3-11 mmol/L Blood Urea Nitrogen 12 7-18 mg/dl Creatinine 0.68 0.60-1.20 mg/dl Est Creatinine Clear Calc Drug Dose 158.9 ml/min Estimated GFR () 125.9 Estimated GFR (Non- 108.6 BUN/Creatinine Ratio 17.8 10-20 Random Glucose 110 70-99 mg/dl Calcium Level 8.6 8.5-10.1 mg/dl Magnesium Level 2.0 1.8-2.4 mg/dl
--- NOTE | 2017-07-28 12:49 | Discharge Instructions ---
Discharge Instructions Date of Service Jul 28, 2017. Admission Reason for Admission: Intractable Nausea And Vomiting Discharge Discharge Diagnosis / Problem: Dizziness,Viral syndrome Discharge Goals Goal(s): Prevent Disease Progression Activity Recommendations Activity Limitations: resume your previous activity . Instructions / Follow-Up Instructions / Follow-Up Slava Aldana on 08/02/17 at 11:05 AM Current Hospital Diet Patient's current hospital diet: AHA Diet (Heart Healthy) Discharge Diet Recommended Diet: Regular Diet Pending Studies Studies pending at discharge: no Laboratory Results Hemoglobin A1c Test 07/26/17 07:47 Range/Units Estimated Average Glucose 137 mg/dl Hemoglobin A1c 6.4 H 4.5-5.6 % Lipid Panel Test 07/26/17 07:47 Range/Units Triglycerides Level 125 0-150 mg/dl Cholesterol Level 160 0-200 mg/dl HDL Cholesterol 30 mg/dl Cholesterol/HDL Ratio 5.3 LDL Cholesterol, Calculated 105 mg/dl Medical Emergencies . Who to Call and When: Medical Emergencies: If at any time you feel your situation is an emergency, please call 911 immediately. . Non-Emergent Contact Non-Emergency issues call your: Primary Care Provider . Past History Medical & Surgical History: (1) Asthma (2) Dizzy spells (3) Nausea, vomiting, and diarrhea (4) Lightheadedness . "Provider Documentation" section prepared by Leonila Cool. . VTE Core Measure Inpt VTE Proph given/why not?: Enoxaparin (Lovenox)SQ
--- NOTE | 2017-07-28 19:03 | Discharge Summary ---
Discharge Summary Date of Service Jul 28, 2017. Discharge Summary Admission Date: Jul 25, 2017 at 20:05 Discharge Date: Jul 28, 2017 Discharge Disposition: Home Principal Diagnosis: Dizziness,Viral syndrome Secondary Diagnoses/Problems: Please see H&P and Hospital progress note Medication Reconciliation Continued Medications: Albuterol Sulfate (Proair Respiclick) 108 Mcg/Act Aer 1 PUFF INH DAILY PRN for Shortness of Breath Budesonide/Formoterol Fumarate (Symbicort 80/4.5 Inhaler) Unknown Strength Aero 1 PUFF INH BID Cetirizine Hcl (Zyrtec) 10 Mg Tab 10 MG PO QPM, TAB Estradiol (Vivelle-Dot) 0.05 Mg/24 Hr Dis 1 PATCH TOP 2XWK for 84 Days, #24 PATCH 3 Refills Montelukast Sodium (Singulair) 10 Mg Tab 10 MG PO QPM, TAB Admission Information HPI (per Admitting provider): Patient is a 42 yo female who presented to the ER today for complaints of worsening lightheadedness and dizziness that became worse today. She states she had some slight lightheadedness and dizziness on Sunday which were associated with fever, chills, myalgias, and nausea. She reports on Sunday the lightheadedness was gone and only had persistent flu like symptoms. On Sunday the patient reports having nausea, vomiting, and diarrhea, as well as abdominal pain which occurred prior to having a BM or after anytime the patient took in PO. She denies melena or hematochezia. She reports decreased PO intake due to N/ V/D. She reports that today her lightheadedness and dizziness recurred and were much more severe than last Sunday. She denies any sick contacts. She also reports feeling diaphoresis and palpitations which lasted a few minutes on Sunday and have not recurred. She also reports having severe leg cramps for the last 2 nights which she has not experienced before. Denies any URI symptoms. Denies any recent medication changes. Past Medical/Surgical History Medical Problems: (1) Asthma Status: Chronic (2) Hysterectomy Status: Resolved Family History Diabetes mellitus FH: cancer Gallbladder disease Hypertension Seizures Father: melanoma, [place], DM MGM and PGM: diabetes Social History Smoking Status: Never Smoker Smokeless Tobacco Use: No Alcohol Use: occasionally Drug Use: none Marital Status: Housing status: lives with family Occupational Status: employed Immunizations History of Influenza Vaccine: Unknown History of Tetanus Vaccine?: Unknown History of Pneumococcal: Unknown History of Hepatitis B Vaccine: Unknown Multi-Drug Resistant Organisms History of MDRO: No Allergies Coded Allergies: Oxycodone (Verified Adverse Reaction, Intermediate, VIOLENT VOMITING, 07/25) Home Medications Scheduled Budesonide/Formoterol Fumarate (Symbicort 80/4.5 Inhaler), 1 PUFF INH BID Cetirizine Hcl (Zyrtec), 10 MG PO QPM Estradiol (Vivelle-Dot), 1 PATCH TOP 2XWK Montelukast Sodium (Singulair), 10 MG PO QPM Scheduled PRN Albuterol Sulfate (Proair Respiclick), 1 PUFF INH DAILY PRN for Shortness of Breath Review of Systems Constitutional: + fever, + chills, + sweats Eyes: No eye pain, No redness, No diplopia ENT: No nasal symptoms, No sore throat, No trouble swallowing Respiratory: No cough, No wheezing, No shortness of breath Cardiovascular: + palpitations, No chest pain, No edema Abdomen: + pain, + nausea, + vomiting, + diarrhea, No GI bleeding Musculoskeletal: + muscle pain Genitourinary - Female: No dysuria, No urinary frequency, No urinary urgency Neurologic: No memory loss, No weakness, No numbness/tingling, No vertigo Psychiatric: No depression symptoms, No anxiety, No substance abuse Endocrine: No fatigue, No excessive thirst, No excessive urination Hematologic / Lymphatic: No abnormal bleeding/bruising, No night sweats Integumentary: No rash, No itch, No new/changing skin lesions Physical Ex - H&P Physical Exam Vital Signs Date Time Temp Pulse Resp B/P (MAP) Pulse Ox O2 Delivery O2 Flow Rate FiO2 07/25/17 18:25 77 20 136/83 98 07/25/17 16:30 83 18 117/65 Room Air 07/25/17 16:21 77 07/25/17 15:09 86 136/84 100 Room Air 90 149/100 90 156/99 07/25/17 13:36 78 18 139/99 99 Room Air 07/25/17 12:04 37.0 104 20 162/101 99 Room Air General Appearance: WD/WN, no apparent distress Head: normocephalic, atraumatic Eyes: normal inspection, PERRL, EOMI, sclerae normal (conjunctivae clear) ENT: hearing grossly normal Neck: supple, no JVD, no carotid bruits, trachea midline Respiratory/Chest: chest non-tender, lungs clear, normal breath sounds, no respiratory distress, no accessory muscle use Cardiovascular: regular rate, rhythm, no edema, no gallop, no JVD, no murmur Abdomen/GI: normal bowel sounds, non tender, soft, no organomegaly Back: no CVA tenderness Extremities/Musculoskelatal: normal inspection, no calf tenderness, no pedal edema Neurologic/Psych: no motor/sensory deficits, alert, normal mood/affect, oriented x 3 Skin: normal color, warm/dry, no rash Diagnostics - H&P Diagnostics Laboratory Results Results Past 24 Hours Test 07/25/17 12:30 07/25/17 13:52 Range/Units White Blood Count 12.28 4.8-10.8 K/uL Red Blood Count 5.48 4.2-5.4 M/uL Hemoglobin 13.7 12.0-16.0 g/dL Hematocrit 42.6 37-47 % Mean Corpuscular Volume 77.7 80-100 fL Mean Corpuscular Hemoglobin 25.0 25-34 pg Mean Corpuscular Hemoglobin Concent 32.2 32-36 g/dl Platelet Count 433 130-400 K/uL Mean Platelet Volume 9.6 7.4-10.4 fL Neutrophils (%) (Auto) 71.3 % Lymphocytes (%) (Auto) 21.4 % Monocytes (%) (Auto) 5.7 % Eosinophils (%) (Auto) 1.1 % Basophils (%) (Auto) 0.2 % Neutrophils # (Auto) 8.76 1.4-6.5 K/uL Lymphocytes # (Auto) 2.63 1.2-3.4 K/uL Monocytes # (Auto) 0.70 0.11-0.59 K/uL Eosinophils # (Auto) 0.13 0-0.5 K/uL Basophils # (Auto) 0.02 0-0.2 K/uL RDW Standard Deviation 42.9 36.4-46.3 fL RDW Coefficient of Variation 15.1 11.5-14.5 % Immature Granulocyte % (Auto) 0.3 % Immature Granulocyte # (Auto) 0.04 0.00-0.02 K/uL Sodium Level 138 136-145 mmol/L Potassium Level 3.2 3.5-5.1 mmol/L Chloride Level 103 98-107 mmol/L Carbon Dioxide Level 29 21-32 mmol/L Anion Gap 6.0 3-11 mmol/L Blood Urea Nitrogen 7 7-18 mg/dl Creatinine 0.70 0.60-1.20 mg/dl Est Creatinine Clear Calc Drug Dose 154.8 ml/min Estimated GFR () 124.7 Estimated GFR (Non- 107.6 BUN/Creatinine Ratio 9.5 10-20 Random Glucose 95 70-99 mg/dl Calcium Level 9.1 8.5-10.1 mg/dl Magnesium Level 2.3 1.8-2.4 mg/dl Total Bilirubin 0.5 0.2-1 mg/dl Aspartate Amino Transf (AST/SGOT) 18 15-37 U/L Alanine Aminotransferase (ALT/SGPT) 30 12-78 U/L Alkaline Phosphatase 125 45-117 U/L Total Protein 8.6 6.4-8.2 gm/dl Albumin 3.7 3.4-5.0 gm/dl Globulin 4.9 2.5-4.0 gm/dl Albumin/Globulin Ratio 0.7 0.9-2 Lyme Disease IgG Antibody POS NEG Lyme Disease IgM Antibody NEG NEG Urine Color YELLOW Urine Appearance CLEAR CLEAR Urine pH 7.5 4.5-7.5 Urine Specific [place] 1.005 1.000-1.030 Urine Protein NEG NEG Urine Glucose (UA) NEG NEG Urine Ketones TRACE NEG Urine Occult Blood NEG NEG Urine Nitrite NEG NEG Urine Bilirubin NEG NEG Urine Urobilinogen NEG NEG Urine Leukocyte Esterase SMALL NEG Urine WBC (Auto) 1-5 0-5 /hpf Urine RBC (Auto) 0-4 0-4 /hpf Urine Hyaline Casts (Auto) 1-5 0-5 /lpf Urine Epithelial Cells (Auto) >30 0-5 /lpf Urine Bacteria (Auto) NEG NEG Impression - H&P Impression Assessment and Plan LIGHTHEADEDNESS/DIZZINESS/PALPITATIONS: -will admit to obs in tele to evaluate for any arrhythmias -orthostatics daily; first set was negative -check serial CM -TTE and carotid dopplers ordered -Lyme IgG positive, awaiting confirmatory, patient denies any known rashes or tick bites but recalls her dog having tick bites -hydrate with IV fluids overnight -not likely flu given GI symptoms -CT head negative POSSIBLE LYME: not acute -awaiting confirmatory (if >5 bands positive) -start on doxycycline, switch to PO once able to tolerate PO NAUSEA/VOMITING/DIARRHEA: -x ray negative for ileus or obstruction -most likely viral however if symptoms persist would consider further imaging -check stool culture and c diff ASTHMA: -stable, not in exacerbation -continue home meds and inhalers DM TYPE II: as per outpatient records -patient is not on any meds, presumably diet controlled -will order HbA1c update Level of Care Telemetry Resuscitation Status FULL RESUSCITATION VTE Prophylaxis VTE Risk Assessment Done? Y/N: Yes Risk Level: Moderate Given or contraindicated: Enoxaparin (Lovenox)SQ Physical Exam (per Admitting): General Appearance: WD/WN, no apparent distress Head: normocephalic, atraumatic Eyes: normal inspection, PERRL, EOMI, sclerae normal (conjunctivae clear) ENT: hearing grossly normal Neck: supple, no JVD, no carotid bruits, trachea midline Respiratory/Chest: chest non-tender, lungs clear, normal breath sounds, no respiratory distress, no accessory muscle use Cardiovascular: regular rate, rhythm, no edema, no gallop, no JVD, no murmur Abdomen/GI: normal bowel sounds, non tender, soft, no organomegaly Back: no CVA tenderness Extremities/Musculoskelatal: normal inspection, no calf tenderness, no pedal edema Neurologic/Psych: no motor/sensory deficits, alert, normal mood/affect, oriented x 3 Skin: normal color, warm/dry, no rash Hospital Course LIGHTHEADEDNESS/DIZZINESS/PALPITATIONS:-Resolved -No arrhythmia on Tele -Orthostatics daily; first set was negative -TTE::Normal LV chamber size and wall thickness. * Normal LV systolic function, EF 60-65%. * No segmental left ventricular wall motion abnormalities are noted. * Grade II diastolic dysfunction. * No significant valvular pathology. * Mild left atrial enlargement. Carotid Doppler ::No hemodynamically significant stenosis seen within the carotid arteries. -Lyme IgG positive, awaiting confirmatory, patient denies any known rashes or tick bites but recalls her dog having tick bites -Hydrate with IV fluids overnight -Likely Viral Gastroenteritis -CT head negative -Increase ambulation -No more symptoms reported -discharge home today Continued Dizziness May have Labyrinthine disease Sushila maneuver -helped the symptoms Likely discharge tomorrow POSSIBLE LYME: Ruled Out -awaiting confirmatory (if >5 bands positive) -start on doxycycline, switch to PO once able to tolerate PO -Confirmatory test -negative NAUSEA/VOMITING/DIARRHEA: -x ray negative for ileus or obstruction -most likely viral however if symptoms persist would consider further imaging -check stool culture and c diff-pending Nausea improved ASTHMA: -stable, not in exacerbation -continue home meds and inhalers DM TYPE II: as per outpatient records -patient is not on any meds, presumably diet controlled -will order HbA1c update DVT PROPHYLAXIS Lovenox DISPOSITION discharge home today Total time spent on discharge = 35 minutes This includes examination of the patient, discharge planning, medication reconciliation, and communication with other providers. Discharge Instructions Date of Service Jul 28, 2017. Admission Reason for Admission: Intractable Nausea And Vomiting Discharge Discharge Diagnosis / Problem: Dizziness,Viral syndrome Discharge Goals Goal(s): Prevent Disease Progression Activity Recommendations Activity Limitations: resume your previous activity . Instructions / Follow-Up Instructions / Follow-Up Slava Aldana on 08/02/17 at 11:05 AM Current Hospital Diet Patient's current hospital diet: AHA Diet (Heart Healthy) Discharge Diet Recommended Diet: Regular Diet Pending Studies Studies pending at discharge: no Laboratory Results Hemoglobin A1c Test 07/26/17 07:47 Range/Units Estimated Average Glucose 137 mg/dl Hemoglobin A1c 6.4 H 4.5-5.6 % Lipid Panel Test 07/26/17 07:47 Range/Units Triglycerides Level 125 0-150 mg/dl Cholesterol Level 160 0-200 mg/dl HDL Cholesterol 30 mg/dl Cholesterol/HDL Ratio 5.3 LDL Cholesterol, Calculated 105 mg/dl Medical Emergencies . Who to Call and When: Medical Emergencies: If at any time you feel your situation is an emergency, please call 911 immediately. . Non-Emergent Contact Non-Emergency issues call your: Primary Care Provider . Past History Medical & Surgical History: (1) Asthma (2) Dizzy spells (3) Nausea, vomiting, and diarrhea (4) Lightheadedness . "Provider Documentation" section prepared by Leonila Cool. . VTE Core Measure Inpt VTE Proph given/why not?: Enoxaparin (Lovenox)SQ <Electronically signed by Leonila Cool M.D.> Signed: 07/28/17 1247 Additional Copies To Erinn Aldana M.D. (MEDICAL)
== END 2017-07-28 14:22 | disposition home or self-care (01) ==
LOC: C.EDB 12:02 → C.MED 20:05 → CANRESERV 20:25 → ENRESERV 20:25 → C.MED 07-26 15:21
PROVIDERS: ADMIT Internal Medicine; ATTEND Internal Medicine
DX: R11.2 Nausea with vomiting, unspecified (principal); R19.7 Diarrhea, unspecified; R42 Dizziness and giddiness; J45.909 Unspecified asthma, uncomplicated; E11.9 Type 2 diabetes mellitus without complications; Z90.710 Acquired absence of both cervix and uterus; Z83.3 Family history of diabetes mellitus; Z82.49 Family history of ischemic heart disease and other diseases of the circulatory system; Z82.0 Family history of epilepsy and other diseases of the nervous system

== ENCOUNTER → 2017-08-15 | Outpatient (CLI) | payer OTHER ==
[~2017-08-15] MED LIST changes: +GADAVIST IV PRN; -MBC75 PO
--- NOTE | 2017-08-15 09:24 | DIAGNOSTIC IMAGING REPORT ---
BRAIN COMBO CLINICAL HISTORY: PERSISTENT DIZZINESS X 1 MO trauma. Headache. COMPARISON STUDY: 03/29/2017 TECHNIQUE: Utilizing a 1.5 Marichuy magnet and dedicated coil, multiplanar, multiecho imaging of the brain was performed pre and postcontrast administration. IV administration of 10 mL of Gadavist contrast was uneventful. FINDINGS: Several small punctate foci of increased signal over the cerebral convexities and frontal regions. These are unchanged in the prior study. No significant increase in signal of the optic radiations. No significant postcontrast enhancement. Diffusion-weighted images show no evidence for an acute ischemic event. Sella and parasellar regions are within normal limits. Internal auditory canals are symmetric. The ventricular system is midline. IMPRESSION: 1. Multiple small punctate foci of nonspecific increased signal over the cerebral convexities and frontal lobe regions bilaterally. 2. No change from the prior study. 3. No abnormal postcontrast enhancement. The above report was generated using voice recognition software. It may contain grammatical, syntax or spelling errors. Electronically signed by: Faizan Rea M.D. 08/15/2017 9:22 AM Dictated Date/Time: 08/15/2017 9:18 AM
== END | disposition home or self-care (01) ==
LOC: C.MRI 07:54
PROVIDERS: ATTEND Family Medicine
DX: R42 Dizziness and giddiness (principal)